=== PATIENT | male | born 1995 | race African-American/Black ===

== ENCOUNTER 2016-11-30 11:47 | Emergency (ER) | payer MEDICAID ==
[~2016-11-30] VITALS: Ht 177.8 cm; Wt 79.0 kg
[2016-11-30] MEDS ORDERED: BACITRACIN ZINC OINT UDPKT TOP ONE (13:00)
[2016-11-30] MEDS ORDERED: TETANUS, DIPHTHERIA, PERTUSSIS VAC/PF 0.5ML (>7YR OLD) IM ONE (13:00)
[2016-11-30] MEDS ORDERED: IBUPROFEN 600MG TABLET PO ONE (13:00)
[2016-11-30 13:17] VITALS: BP 127/71
[2016-11-30] MEDS ORDERED: LIDOCAINE HCL/EPINEPHRINE 1%-EPI 1:100,000 20 ML VIAL INFIL ONE (14:15)
[2016-11-30] MEDS ORDERED: LIDOCAINE HCL/EPINEPHRINE 1%-EPI 1:100,000 30 ML VIAL INFIL ONE (14:15)
== END 2016-11-30 16:32 | disposition home or self-care (01) ==
LOC: ER 12:20
DX: S01.511A Laceration without foreign body of lip, initial encounter (principal); S01.21XA Laceration without foreign body of nose, initial encounter; Y04.0XXA Assault by unarmed brawl or fight, initial encounter; Y92.018 Other place in single-family (private) house as the place of occurrence of the external cause
CPT/HCPCS: 12013; 90471; 90715; 99283; J3490; X7700; Z7610